=== PATIENT | female | born 1975 | race Caucasian/White ===

== ENCOUNTER 2017-05-03 16:15 | Emergency (ER) | payer MEDICAID, OTHER ==
[~2017-05-03] VITALS: Ht 170.2 cm; Wt 107.9 kg
[~2017-05-03 16:15] MED LIST: ESTR0.5T PO; PERC5TAB12 PO
[2017-05-03 16:21] VITALS: BP 146/68; PULSE 68; RESP 16; TEMP 98; O2SAT 99
--- NOTE | 2017-05-03 17:58 | RADRPT ---
EXAM DATE/TIME: 05/03/2017 17:31 [facility] COMPARISON: No previous studies available for comparison. INDICATIONS : Left shoulder pain. Recent pain from lifting/moving. MEDICAL HISTORY : None. SURGICAL HISTORY : None. ENCOUNTER: Initial ACUITY: 4 - 6 months PAIN SCORE: 7/10 LOCATION: Left shoulder FINDINGS: Two view examination of the left shoulder demonstrates no evidence of fracture or dislocation. The g lenohumeral and acromioclavicular joints are maintained. Bony mineralization is normal. CONCLUSION: Negative for an acute process. Clarke Cartagena MD FACR on May 03, 2017 at 17:55 Board Certified Radiologist. This report was verified electronically.
[2017-05-03] MEDS ORDERED: IBUP1TAB7 PO (18:35)
--- NOTE | 2017-05-03 18:43 | PD ---
HPI Chief Complaint: Pain: Acute or Chronic Time Seen by Provider: 18:20 Travel History International Travel<30 days: No Contact w/Intl Traveler<30days: No Traveled to known affect area: No History of Present Illness HPI 42-year-old right-hand dominant female presents to the ED for evaluation of 2 month history of left shoulder pain. Onset after she was lifting a sofa with her daughter. She states that she felt a "lengthening" sensation in the area. She saw her primary care provider who told her was a pinched nerve and gave her some Flexeril. She's had no improvement of her symptoms. 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 She states that the arm feels like it's "hanging" and weak. She also states that she has difficulty raising it above shoulder height. She denies numbness or tingling. She states that she treated at home with ibuprofen with no improvement of symptoms. PFSH Past Medical History Hx Anticoagulant Therapy: No Asthma: Yes Diabetes: No ?: Not Past Surgical History Cholecystectomy: Yes Hysterectomy: Yes Other Surgery: Yes ("FATTY TUMORS REMOVED" OFF OF BACK) Social History Alcohol Use: No Tobacco Use: Yes (06/11 PPD) Substance Use: No Allergies-Medications (Allergen,Severity, Reaction): Coded Allergies: No Known Allergies (Unverified Adverse Reaction, Unknown, 05/03/17) Reported Meds & Prescriptions Reported Meds & Active Scripts Active Ibuprofen 800 Mg Tab 800 Mg PO Q8H Reported Percocet 5-325 mg (Oxycodone/Acetaminophen) 5 Mg/325 Mg Tab 1 Tab PO Q4H PRN Estradiol 0.5 Mg Tab 0.5 Mg PO DAILY Review of Systems Except as stated in HPI: all other systems reviewed are Neg Physical Exam Narrative GENERAL: Well-nourished, well-developed obese white female in no acute distress. SKIN: Focused skin assessment warm/dry. HEAD: Normocephalic. EYES: No scleral icterus. No injection or drainage. NECK: Supple, trachea midline. No JVD or lymphadenopathy. CARDIOVASCULAR: Regular rate and rhythm without murmurs, gallops, or rubs. RESPIRATORY: Breath sounds equal bilaterally. No accessory muscle use. GASTROINTESTINAL: Abdomen soft, non-tender, nondistended. MUSCULOSKELETAL: No cyanosis, or edema. FOCUSED LEFT UPPER EXTREMITY EXAM: 2+ radial pulse. Strong sales program manager strength. No pain elicited with supination or pronation of the wrist. Pain elicited with external rotation of the arm. Pain elicited with resisted abduction. Pain elicited with passive overhead abduction. Drop arm test positive. Neurovascularly intact distally. BACK: Nontender without obvious deformity. No CVA tenderness. Data Data Last Documented VS Vital Signs Date Time Temp Pulse Resp B/P (MAP) Pulse Ox O2 Delivery O2 Flow Rate FiO2 05/03/17 16:21 98.0 68 16 146/68 (94) 99 Orders Orders Shoulder, Limited(2vws) (05/03/17 ) Ibuprofen (Motrin) (05/03/17 18:45) Support Splint (05/03/17 18:35) MDM Medical Decision Making Medical Screen Exam Complete: Yes Emergency Medical Condition: Yes Differential Diagnosis Musculoskeletal pain versus rotator cuff tear versus rotator cuff tendinitis versus other Narrative Course 42-year-old right-hand dominant female presents to the ED for evaluation of 2 month history of left shoulder pain. Onset after she was lifting a sofa with her daughter. She states that she felt a "lengthening" sensation in the area. She saw her primary care provider who told her was a pinched nerve and gave her some Flexeril. 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 She states that the arm feels like it's "hanging" , weak and that she has difficulty raising it above shoulder height. She drove herself to the emergency room today. Vitals reviewed. On physical exam of the left arm there is a 2+ radial pulse. Strong sales program manager strength. No pain elicited with supination or pronation of the wrist. Pain elicited with external rotation of the arm. Pain elicited with resisted abduction. Pain elicited with passive overhead abduction. Drop arm test positive. Neurovascularly intact distally. X-ray reveals no acute bony injury per radiology read. I suspect this is rotator cuff tear. I had a long conversation with the patient regarding the course of treatment for this injury. She is requesting a sling and I provided this with the caveat that she only wear it while sleeping and return to normal gentle activity as tolerated. She is provided a short course of anti-inflammatories and a referral to the on- call orthopedist. She indicated understanding of the instructions and is agreeable to the care plan. The patient is stable and discharged home. Diagnosis Primary Impression: Injury of tendon of left rotator cuff Qualified Codes: S46.002A - Unspecified injury of muscle(s) and tendon(s) of the rotator cuff of left shoulder, initial encounter Referrals: Wood Barksdale MD Patient Instructions: General Instructions, Rotator Cuff Injury (ED) Additional Instructions: Rest, ice the extremity. Apply ice no longer than 10-15 minutes per hour a few times a day. 800 mg ibuprofen up to 3 times a day as needed for pain. No heavy lifting or repetitive motion tasks for the next few weeks. Only wear the sling at night. Return to normal gentle activity as tolerated. Follow up with the primary care provider or orthopedist as discussed. Return to the ED for any urgent or emergent medical condition. Med/Other Pt SpecificInfo: Prescription(s) given Scripts Ibuprofen (Ibuprofen) 800 Mg Tab 800 MG PO Q8H, #15 TAB 0 Refills Prov: Kevin Lay MD 05/03/17 Disposition: 01 DISCHARGE HOME Condition: Stable Ana Soares May 03, 2017 18:43
[2017-05-03] MEDS ORDERED: IBUPROFEN 800 MG TAB PO ONE (18:45)
== END 2017-05-03 19:23 | disposition home or self-care (01) ==
LOC: PHEFT 16:15
DX: S46.002A Unspecified injury of muscle(s) and tendon(s) of the rotator cuff of left shoulder, initial encounter (principal); J45.909 Unspecified asthma, uncomplicated; F17.200 Nicotine dependence, unspecified, uncomplicated; X50.0XXA Overexertion from strenuous movement or load, initial encounter; Y93.9 Activity, unspecified; Y92.9 Unspecified place or not applicable; Y99.9 Unspecified external cause status
CPT/HCPCS: 73030; 99283

== ENCOUNTER 2017-06-04 01:49 | Inpatient (IN) | payer OTHER ==
[2017-06-04] VITALS (9 sets, daily range): BP systolic 132–141; BP diastolic 70–84; PULSE 63–77; RESP 18–24; TEMP 98.3–98.9; O2SAT 96–99
[~2017-06-04 01:49] MED LIST changes: +IBUP1TAB7 PO
[2017-06-04] MEDS ORDERED: LEXA10TA PO (03:00)
--- NOTE | 2017-06-04 03:27 | PD ---
HPI . Status post fall Chief Complaint: Fall Time Seen by Provider: 02:55 Travel History International Travel<30 days: No Contact w/Intl Traveler<30days: No Traveled to known affect area: No History of Present Illness HPI 42-year-old female status post trip and fall patient hit her face on the edge of a golf cart causing a rapid extension mechanism injury of her neck with immediate subsequent numbness weakness in her lower extremities and intense paresthesias in bilateral upper extremities. Patient states that the weakness and numbness in her lower extremities has abated, patient now has no lower extremity symptoms whatsoever. Patient does have persistent bilateral upper extremity paresthesias radiating from elbow down to hands. Patient denies headache, neck pain, visual changes, other focal weakness numbness or tingling, incontinence, or seizure PFSH Past Medical History Narrative Medical Past medical history reviewed Hx Anticoagulant Therapy: No Asthma: Yes Diabetes: No Patient Takes Glucophage: No Diminished Hearing: No Tetanus Vaccination: Unknown ?: Not Past Surgical History Cholecystectomy: Yes Hysterectomy: Yes (COMPLETE) Other Surgery: Yes ("FATTY TUMORS REMOVED" OFF OF BACK) Social History Alcohol Use: No Tobacco Use: Yes (06/11 PPD) Substance Use: No Allergies-Medications (Allergen,Severity, Reaction): Coded Allergies: No Known Allergies (Unverified Adverse Reaction, Unknown, 05/03/17) Reported Meds & Prescriptions Reported Meds & Active Scripts Active Reported Lexapro (Escitalopram Oxalate) 10 Mg Tab 10 Mg PO DAILY Narrative Medication Allergies medications reviewed Review of Systems Except as stated in HPI: all other systems reviewed are Neg General / Constitutional: No: Fever Eyes: No: Visual changes HENT: No: Headaches Cardiovascular: No: Chest Pain or Discomfort Respiratory: No: Shortness of Breath Gastrointestinal: No: Abdominal Pain Genitourinary: No: Dysuria Musculoskeletal: No: Pain Skin: No Rash Neurologic: Positive: Weakness, Paresthesia, Sensory Disturbance Psychiatric: No: Depression Endocrine: No: Polydipsia Hematologic/Lymphatic: No: Easy Bruising Physical Exam Narrative GENERAL: Awake alert oriented 3 no acute distress. Patient refused c-collar, will except neck bolster. Patient states that she is claustrophobic SKIN: Warm and dry. Color is normal diaphoresis and is HEAD: Atraumatic. Normocephalic. EYES: Pupils equal and round. No scleral icterus. No injection or drainage. ENT: No nasal bleeding or discharge. Mucous membranes pink and moist. NECK: Trachea midline. No JVD. Slightly tender midline. No range of motion tested secondary to patient's complaints of paresthesias above. Possible central cord syndrome mechanism. C-spine bolstered with strict C-spine precautions CARDIOVASCULAR: Regular rate and rhythm. S1-S2 no murmurs rubs or gallops RESPIRATORY: No accessory muscle use. Clear to auscultation. Breath sounds equal bilaterally. GASTROINTESTINAL: Abdomen soft, non-tender, nondistended. Hepatic and splenic margins not palpable. MUSCULOSKELETAL: Extremities without clubbing, cyanosis, or edema. No obvious deformities. NEUROLOGICAL: Awake and alert. No obvious cranial nerve deficits. Motor grossly within normal limits. Five out of 5 muscle strength in the arms and legs. Normal speech. Paresthesias noted bilateral upper extremities. Sensation intact. Perineal sensation intact. Reflexes normal all 4 PSYCHIATRIC: Appropriate mood and affect; insight and judgment normal. Data Data Last Documented VS Vital Signs Date Time Temp Pulse Resp B/P (MAP) Pulse Ox O2 Delivery O2 Flow Rate FiO2 06/04/17 02:56 98.7 71 19 98 Orders Orders Mri C Spine W/O Contrast (06/04/17 ) Dexamethasone Inj (Decadron Inj) (06/04/17 05:00) Admit Order (Ed Use Only) (06/04/17 05:02) MDM Medical Decision Making Medical Screen Exam Complete: Yes Emergency Medical Condition: Yes Medical Record Reviewed: Yes Differential Diagnosis Central cord syndrome, cervical spine injury, facial contusion Narrative Course Patient has no obvious injury of her face, there is no clinical affords. Patient's teeth are intact. Secondary to the rapid extension mechanism of injury and the paresthesias in bilateral upper extremities with resolving weakness and numbness in bilateral lower extremities, patient had MRI of the cervical spine ordered at presentation. ED wet read MRI C-spine, disc protrusion at C4-C5 level with possible protrusion into spinal cord and increased signal at same level consistent with mechanism of injury and patient's presentation of central cord syndrome. Awaiting radiology read, patient placed in Bighorn collar Diagnosis Primary Impression: Central cord syndrome Qualified Codes: S14.129A - Central cord syndrome at unspecified level of cervical spinal cord, initial encounter Additional Impression: Cervical spinal cord injury Qualified Codes: S14.109A - Unspecified injury at unspecified level of cervical spinal cord, initial encounter Admitting Information Admitting Physician Requests: Admit Morro Villasenor MD Jun 04, 2017 03:27
--- NOTE | 2017-06-04 04:24 | RADRPT ---
EXAM DATE/TIME: 06/04/2017 03:50 [facility] COMPARISON: No previous studies available for comparison. INDICATIONS : Trauma. Cord contusion. MEDICAL HISTORY : None. SURGICAL HISTORY : Hysterectomy. ENCOUNTER: Initial ACUITY: 1 day PAIN SCORE: 6/10 LOCATION: neck TECHNIQUE: Multiplanar, multisequence MRI examination of the cervical spine was performed. FINDINGS: No fracture or subluxation seen of the cervical spine. 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 C2-C3: The thecal sac has a normal configuration. There is no evidence of disc herniation or spinal canal s tenosis. The neural foramina are patent bilaterally. C3-C4: The thecal sac has a normal configuration. There is no evidence of disc herniation or spinal canal s tenosis. The neural foramina are patent bilaterally. C4-C5: Small, broad protrusion with a superimposed large left paracentral and partial foraminal extrusion wi th spinal stenosis and cord compression noted. There is associated cord edema or myelomalacia present . There is right greater than left uncovertebral osteoarthritis and moderate bilateral foraminal sten osis. C5-C6: Small, broad protrusion with a superimposed moderate-sized central extrusion causing short segment sp inal stenosis with cord compression. No cord signal abnormality at this level. There is left greater than right uncovertebral and facet osteoarthritis. [id number] left foraminal stenosis. C6-C7: Small, broad and probably nonacute left paracentral disc protrusion causing mild effacement of the an terior aspect of the thecal sac but no cord compression or cord signal abnormality. There is mild lef t foraminal stenosis. C7-T1: The thecal sac has a normal configuration. There is no evidence of disc herniation or spinal canal s tenosis. The neural foramina are patent bilaterally. CONCLUSION: 1. Large and quite possibly acute left paracentral disc fragment at C4/C5 causing cord compression an d focal cord edema/myelomalacia. There is also moderate bilateral foraminal stenosis at this level. 2. Moderate size and quite possibly acute central posterior disc fragment at C5/C6 causing cord compr ession but no cord signal abnormality. There is also mild to moderate left foraminal stenosis at this level. 3. Small and probably nonacute left paracentral protrusion at C6/C7 with mild spinal stenosis and mil d foraminal stenosis. No cord compression or cord signal abnormality at this level. 4. No fracture, subluxation or evidence of ligamentous injury of the cervical spine. John Trujillo MD on June 04, 2017 at 4:13 Board Certified Radiologist. This report was verified electronically.
[2017-06-04] MEDS ORDERED: DEXAMETHASONE SOD PHOS 20 MG/5 ML VIAL IV PUSH ONE (05:00)
[2017-06-04] MEDS ORDERED: HYDROmorphone HCL PF 2 MG/ML VIAL IV PUSH ONE (05:30)
[2017-06-04] MEDS ORDERED: HYDROmorphone HCL PF 1 MG/ML VIAL IV PUSH PRN (05:45)
[2017-06-04] MEDS ORDERED: BISACODYL 10 MG SUPP RECTAL PRN ×2 (05:45→08:45)
[2017-06-04] MEDS ORDERED: TEMAZEPAM 15 MG CAP PO PRN (05:45)
[2017-06-04] MEDS ORDERED: SENNOSIDES 8.6 MG TAB PO PRN ×2 (05:45→08:45)
[2017-06-04] MEDS ORDERED: ONDANSETRON HCL 4 MG/2 ML VIAL IV PUSH PRN ×2 (05:45→08:45)
[2017-06-04] MEDS ORDERED: CHLORHEXIDINE GLUCONATE 2 % 1 PACK (2 CLOTHS) TOP PRN (05:45)
[2017-06-04] MEDS ORDERED: SODIUM CHLORIDE 0.9% FLUSH 10 ML FLUSH IV FLUSH PRN ×2 (05:45→08:45)
[2017-06-04] MEDS ORDERED: LACTULOSE SYRUP 20 GM/30 ML CUP PO PRN ×2 (05:45→08:45)
[2017-06-04] MEDS ORDERED: LORazepam 2 MG/ML VIAL IV PUSH PRN (05:45)
[2017-06-04] MEDS ORDERED: MAGNESIUM HYDROXIDE SUSP 30 ML CUP PO PRN ×2 (05:45→08:45)
[2017-06-04] MEDS ORDERED: MISCELLANEOUS NURSING INFORMATION XX SCH (05:45)
[2017-06-04] MEDS ORDERED: RESP: ALBUTEROL 2.5 MG/IPRATROPIUM 0.5 MG NEB (PRN) INH (05:45)
[2017-06-04] MEDS: SODIUM CHLOR 0.9% 1000 ML INJ 1,000 ML IV SCH ×2 (05:56→17:39)
--- NOTE | 2017-06-04 05:58 | HHI.HP ---
HPI Service Critical Care Medicine Primary Care Physician Jourdan Castro MD Admission Diagnosis Cervical Cord Injury Diagnosis: Travel History International Travel<30 Days: No Contact w/Intl Traveler <30 Da: No Traveled to Known Affected Are: No History of Present Illness 42-year-old female status post trip and fall. The patient hit her face on the edge of a golf cart causing a rapid extension mechanism injury of her neck with immediate subsequent numbness weakness in her lower extremities and intense paresthesias in bilateral upper extremities. Patient does have persistent bilateral upper extremity paresthesias radiating from elbow down to hands. She denies headache, neck pain, visual changes, other focal weakness numbness or tingling, incontinence, or seizure. The MRI of C-spine performed in the emergency department shows large acute left paracentral disc fragment at C4/C5 causing cord compression and focal cord edema/myelomalacia. There is also moderate bilateral foraminal stenosis at this level. Review of Systems Constitutional: DENIES: Diaphoretic episodes, Fatigue, Fever, Weight gain, Weight loss, Chills, Dizziness, Change in appetite, Night Sweats Endocrine: DENIES: Abnorml menstrual pattern, Heat/cold intolerance, Polydipsia , Polyuria, Polyphagia Eyes: DENIES: Blurred vision, Diplopia, Eye inflammation, Eye pain, Vision loss , Photosensitivity, Double Vision Ears, nose, mouth, throat: DENIES: Tinnitus, Hearing loss, Vertigo, Nasal discharge, Oral lesions, Throat pain, Hoarseness, Ear Pain, Running Nose, Epistaxis, Sinus Pain, Toothache, Odynophagia Respiratory: DENIES: Apneas, Cough, Snoring, Wheezing, Hemoptysis, Sputum production, Shortness of breath Cardiovascular: DENIES: Chest pain, Palpitations, Syncope, Dyspnea on Exertion , PND, Lower Extremity Edema, Orthopnea, Claudication Gastrointestinal: DENIES: Abdominal pain, Black stools, Bloody stools, Constipation, Diarrhea, Nausea, Vomiting, Difficulty Swallowing, Anorexia Genitourinary: DENIES: Abnormal vaginal bleeding, Dysmenorrhea, Dyspareunia, Sexual dysfunction, Urinary frequency, Urinary incontinence, Urgency, Hematuria , Dysuria, Nocturia, Vaginal discharge Musculoskeletal: DENIES: Joint pain, Muscle aches, Stiffness, Joint Swelling, Back pain, Neck pain Integumentary: DENIES: Abnormal pigmentation, Pruritus, Rash, Nail changes, Breast masses, Breast skin changes, Nipple discharge Hematologic/lymphatic: DENIES: Bruising, Lymphadenopathy Immunologic/allergic: DENIES: Eczema, Urticaria Neurologic: COMPLAINS OF: Abnormal gait, Localized weakness, Paresthesias, DENIES: Headache, Seizures, Speech Problems, Tremor, Poor Balance Psychiatric: DENIES: Anxiety, Confusion, Mood changes, Depression, Hallucinations, Agitation, Suicidal Ideation, Homicidal Ideation, Delusions Past Family Social History Allergies: Coded Allergies: No Known Allergies (Unverified Allergy, Unknown, 06/04/17) Past Medical History Anxiety Past Surgical History Cholecystectomy: Yes Hysterectomy: Yes (COMPLETE) Other Surgery: Yes ("FATTY TUMORS REMOVED" OFF OF BACK) Reported Medications Reported Meds & Active Scripts Active Reported Lexapro (Escitalopram Oxalate) 10 Mg Tab 10 Mg PO DAILY Active Ordered Medications Current Medications Dexamethasone Sodium Phosphate (Decadron Inj) 10 mg ONCE ONCE IV PUSH Last administered on 06/04/17at 05:06; Start 06/04/17 at 05:00; Stop 06/04/17 at 05:01 ; Status DC Hydromorphone HCl (Dilaudid Pf Inj) 1 mg ONCE ONCE IV PUSH ; Start 06/04/17 at 05:30; Stop 06/04/17 at 05:31; Status DC Family History No family history significant of a stroke Social History Alcohol Use: No Tobacco Use: Yes (3/4 PPD) Substance Use: No Physical Exam Vital Signs Vital Signs Date Time Temp Pulse Resp B/P (MAP) Pulse Ox O2 Delivery O2 Flow Rate FiO2 06/04/17 05:12 70 18 135/84 (101) 99 Room Air 06/04/17 02:56 98.7 71 19 98 Physical Exam GENERAL: Awake alert oriented 3 no acute distress. SKIN: Warm and dry. Color is normal. HEAD: Atraumatic. Normocephalic. EYES: Pupils equal and round. No scleral icterus. No injection or drainage. ENT: No nasal bleeding or discharge. Mucous membranes pink and moist. NECK: Trachea midline. No JVD. Slightly tender midline. No range of motion tested secondary to patient's complaints of paresthesias above. Possible central cord syndrome mechanism. C-spine bolstered with strict C-spine precautions CARDIOVASCULAR: Regular rate and rhythm. S1-S2 no murmurs rubs or gallops RESPIRATORY: No accessory muscle use. Clear to auscultation. Breath sounds equal bilaterally. GASTROINTESTINAL: Abdomen soft, non-tender, nondistended. Hepatic and splenic margins not palpable. MUSCULOSKELETAL: Extremities without clubbing, cyanosis, or edema. No obvious deformities. NEUROLOGICAL: Awake and alert. No obvious cranial nerve deficits. Motor grossly within normal limits. Five out of 5 muscle strength in the arms and legs. Normal speech. Paresthesias noted bilateral upper extremities. Sensation intact. Perineal sensation intact. Reflexes normal all 4 Imaging 1. Large and quite possibly acute left paracentral disc fragment at C4/C5 causing cord compression and focal cord edema/myelomalacia. There is also moderate bilateral foraminal stenosis at this level. 2. Moderate size and quite possibly acute central posterior disc fragment at C5/ C6 causing cord compression but no cord signal abnormality. There is also mild to moderate left foraminal stenosis at this level. 3. Small and probably nonacute left paracentral protrusion at C6/C7 with mild spinal stenosis and mild foraminal stenosis. No cord compression or cord signal abnormality at this level. 4. No fracture, subluxation or evidence of ligamentous injury of the cervical spine. Septic Shock Reassessment Septic shock perfusion: reassessment completed Caprini VTE Risk Assessment Caprini VTE Risk Assessment: Mod/High Risk (score >= 2) Caprini Risk Assessment Model Point Value = 1 Point Value = 2 Point Value = 3 Point Value = 5 Age 41-60 Minor surgery BMI > 25 kg/m2 Swollen legs Varicose veins or History of unexplained or recurrent spontaneous Oral contraceptives or hormone replacement Sepsis (< 1 month) Serious lung disease, including pneumonia (< 1 month) Abnormal pulmonary function Acute myocardial infarction Congestive heart failure (< 1 month) History of inflammatory bowel disease Medical patient at bed rest Age 61-74 Arthroscopic surgery Major open surgery (> 45 min) Laparoscopic surgery (> 45 min) Malignancy Confined to bed (> 72 hours) Immobilizing plaster cast Central venous access Age >= 75 History of VTE Family history of VTE Factor V Leiden Prothrombin [id number] Lupus anticoagulant Anticardiolipin antibodies Elevated serum homocysteine Heparin-induced thrombocytopenia Other congenital or acquired thrombophilia Stroke (< 1 month) Elective arthroplasty Hip, pelvis, or leg fracture Acute spinal cord injury (< 1 month) Prophylaxis Regimen Total Risk Factor Score Risk Level Prophylaxis Regimen 0-1 Low Early ambulation 2 Moderate Order ONE of the following: *Sequential Compression Device (SCD) *Heparin 5000 units SQ BID 3-4 Higher Order ONE of the following medications: *Heparin 5000 units SQ TID *Enoxaparin/Lovenox 40 mg SQ daily (WT < 150 kg, CrCl > 30 mL/min) *Enoxaparin/Lovenox 30 mg SQ daily (WT < 150 kg, CrCl > 10-29 mL/min) *Enoxaparin/Lovenox 30 mg SQ BID (WT < 150 kg, CrCl > 30 mL/min) AND/OR *Sequential Compression Device (SCD) 5 or more Highest Order ONE of the following medications: *Heparin 5000 units SQ TID (Preferred with Epidurals) *Enoxaparin/Lovenox 40 mg SQ daily (WT < 150 kg, CrCl > 30 mL/min) *Enoxaparin/Lovenox 30 mg SQ daily (WT < 150 kg, CrCl > 10-29 mL/min) *Enoxaparin/Lovenox 30 mg SQ BID (WT < 150 kg, CrCl > 30 mL/min) AND *Sequential Compression Device (SCD) Assessment and Plan Assessment and Plan Acute left paracentral disc fragment at C4/C5 - With cord compression and focal cord edema/myelomalacia - Stat neurosurgical consultation - Received IV steroids per neurosurgical request - MAP goal > 85-90 - currently at goal Anxiety - Continue Lexapro History of asthma - DuoNeb's when necessary DVT GI prophylaxis - Teds SCDs - Lovenox - Pepcid Critical Care: The total critical care time was 35 minutes. Time to perform other separately billable procedures was not included in the critical care time. Angel Brooks MD Jun 04, 2017 5:58 am
[2017-06-04] MEDS: ACETAMINOPHEN 325 MG TAB PO PRN ×2 (06:02→11:50)
[2017-06-04] MEDS: ACETAMINOPHEN 1000 MG/100 ML 100 ML IV SCH ×3 (06:45→18:45)
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
--- NOTE | 2017-06-04 08:43 | RADRPT ---
EXAM DATE/TIME: 06/04/2017 08:20 [facility] COMPARISON: No previous studies available for comparison. INDICATIONS : Fell forward into golf cart. No current chest pain, pre-operative for cervical surgery. MEDICAL HISTORY : None. SURGICAL HISTORY : None. ENCOUNTER: Initial ACUITY: 1 day PAIN SCORE: 0/10 LOCATION: Bilateral chest FINDINGS: A single view of the chest demonstrates the lungs to be symmetrically aerated without evidence of mas s, infiltrate or effusion. The cardiomediastinal contours are unremarkable. Osseous structures are intact. CONCLUSION: No acute disease. John Lomeli MD on June 04, 2017 at 8:42 Board Certified Radiologist. This report was verified electronically.
[2017-06-04] MEDS ORDERED: RESP: ALBUTEROL 2.5 MG/3 ML NEB (PRN) NEB (08:45)
[2017-06-04] MEDS ORDERED: PROMETHAZINE INJ 25 MG/ML VIAL IM PRN (08:45)
[2017-06-04] MEDS ORDERED: MAGNESIUM SULFATE INJ 2 GM in SODIUM CHLORIDE 0.9% INJ 100 ML IV PRN (08:45)
[2017-06-04] MEDS ORDERED: ZOLPIDEM TARTRATE 5 MG TAB PO PRN (08:45)
[2017-06-04] MEDS ORDERED: POTASSIUM CHLOR 20 MEQ PREMIX 100 ML IV PRN (08:45)
[2017-06-04] MEDS ORDERED: ALUMINUM/MAGNESIUM/SIMETH 30 ML CUP PO PRN (08:45)
[2017-06-04] MEDS ORDERED: CALCIUM GLUCONATE INJ 1 GM in SODIUM CHLORIDE 0.9% INJ 100 ML IV PRN (08:45)
[2017-06-04] MEDS ORDERED: LABETALOL HCL 100 MG/20 ML VIAL IV PUSH PRN (08:45)
[2017-06-04] MEDS ORDERED: CYCLOBENZAPRINE HCL 10 MG TAB PO PRN (08:45)
[2017-06-04] MEDS ORDERED: cloNIDine HCL 0.1 MG TAB PO PRN (08:45)
[2017-06-04 08:56] LABS: AUTOMATED NEUTROPHIL # 3.6 TH/MM3 (1.8-7.7); BASOPHIL % 0.8 % (0.0-2.0); EOSINOPHIL # 0.1 TH/MM3 (0-0.4); EOSINOPHIL % 1.7 % (0.0-4.0); HEMOGLOBIN 13.8 GM/DL (11.6-15.3); LYMPHOCYTE # 2.3 TH/MM3 (1.0-4.8); MEAN CELL VOLUME 86.2 FL (80.0-100.0); MEAN CORPUSCULAR HEMOGLOBIN 29.7 PG (27.0-34.0); MEAN CORPUSCULAR HGB CONC 34.4 % (32.0-36.0); MEAN PLATELET VOLUME 7.3 FL (7.0-11.0); MONO % 7.4 % (0.0-8.0); MONOCYTE # 0.5 TH/MM3 (0-0.9); NEUT % 55.1 % (16.0-70.0); PLATELET COUNT 296 TH/MM3 (150-450); RED BLOOD COUNT 4.64 MIL/MM3 (4.00-5.30); RED CELL DISTRIBUTION WIDTH 13.9 % (11.6-17.2); WHITE BLOOD COUNT 6.5 TH/MM3 (4.0-11.0)
[2017-06-04] MEDS ORDERED: SODIUM CHLORIDE 0.9% FLUSH 10 ML FLUSH IV FLUSH SCH (09:00)
[2017-06-04] MEDS ORDERED: DOCUSATE SODIUM 50 MG/SENNA 8.6 MG TAB PO SCH (09:00)
[2017-06-04] MEDS ORDERED: PANTOPRAZOLE SOD 40 MG DELAYED RELEASE TAB PO SCH (09:00)
[2017-06-04] MEDS ORDERED: ENOXAPARIN SODIUM 40 MG/0.4 ML SYRINGE SQ SCH (09:00)
[2017-06-04] MEDS ORDERED: ESCITALOPRAM OXALATE 10 MG TAB PO SCH (09:00)
[2017-06-04 09:10] LABS: INTERNATIONAL NORMALIZED RATIO 0.9 RATIO; PROTHROMBIN TIME - PATIENT 9.4 SEC (9.8-11.6)
[2017-06-04 09:48] LABS: BICARBONATE 24.2 MEQ/L (21.0-32.0); CALCIUM 8.8 MG/DL (8.5-10.1); CREATININE 0.8 MG/DL (0.50-1.00)
[2017-06-04] MEDS: DOCUSATE SODIUM 50 MG/SENNA 8.6 MG TAB PO SCH ×2 (10:29→21:00)
[2017-06-04] MEDS: FAMOTIDINE 20 MG/2 ML VIAL IV PUSH SCH ×2 (10:30→21:00)
[2017-06-04] MEDS: SODIUM CHLORIDE 0.9% FLUSH 10 ML FLUSH IV FLUSH SCH ×2 (10:30→21:00)
[2017-06-04] MEDS: ESCITALOPRAM OXALATE 10 MG TAB PO SCH (11:00)
--- NOTE | 2017-06-04 11:29 | EKG ---
Date Performed: 06/04/2017 Time Performed: 08:25:41 PTAGE: 42 years EKG: Sinus rhythm NORMAL ECG NO PREVIOUS TRACING DOCTOR: Saroj Villalba Interpretating Date/Time 06/04/2017 11:27:48
[2017-06-04] MEDS: DEXAMETHASONE SOD PHOS 4 MG/ML VIAL IV PUSH SCH ×3 (11:50→22:53)
[2017-06-04] MEDS: ACETAMINOPHEN/HYDROcodone 325 MG/10 MG TAB PO PRN ×2 (15:20→18:03)
[2017-06-04] MEDS: HYDROmorphone HCL PF 2 MG/ML VIAL IV PRN ×2 (18:03→22:53)
[2017-06-05] MEDS: ACETAMINOPHEN 1000 MG/100 ML 100 ML IV SCH ×4 (00:45→18:45)
[2017-06-05] MEDS: CHLORHEXIDINE GLUCONATE 2 % 1 PACK (2 CLOTHS) TOP SCH (04:00)
[2017-06-05] MEDS: SODIUM CHLOR 0.9% 1000 ML INJ 1,000 ML IV SCH ×2 (05:34→12:48)
[2017-06-05 05:50] LABS: AUTOMATED NEUTROPHIL # 7.6 TH/MM3 (1.8-7.7); BASOPHIL % 0.1 % (0.0-2.0); HEMATOCRIT 37.9 % (35.0-46.0); HEMOGLOBIN 12.9 GM/DL (11.6-15.3); LYMPH % 10.3 % (9.0-44.0); LYMPHOCYTE # 0.9 TH/MM3 (1.0-4.8); MEAN CELL VOLUME 84.6 FL (80.0-100.0); MEAN CORPUSCULAR HEMOGLOBIN 28.9 PG (27.0-34.0); MEAN CORPUSCULAR HGB CONC 34.1 % (32.0-36.0); MEAN PLATELET VOLUME 6.9 FL (7.0-11.0); MONO % 4.6 % (0.0-8.0); MONOCYTE # 0.4 TH/MM3 (0-0.9); PLATELET COUNT 285 TH/MM3 (150-450); RED BLOOD COUNT 4.48 MIL/MM3 (4.00-5.30); RED CELL DISTRIBUTION WIDTH 13.9 % (11.6-17.2); WHITE BLOOD COUNT 8.9 TH/MM3 (4.0-11.0)
[2017-06-05 06:15] LABS: ALBUMIN 3.5 GM/DL (3.4-5.0); AST (GOT) 6 U/L (15-37); BICARBONATE 24.9 MEQ/L (21.0-32.0); BLOOD UREA NITROGEN 13 MG/DL (7-18); CALCIUM 9.1 MG/DL (8.5-10.1); CHLORIDE 107 MEQ/L (98-107); CREATININE 0.76 MG/DL (0.50-1.00); GLOMERULAR FILTRATION RATE 83 ML/MIN (>89); GLUCOSE,RANDOM 148 MG/DL (74-106); MAGNESIUM 2.1 MG/DL (1.5-2.5); SODIUM (NA) 140 MEQ/L (136-145)
[2017-06-05 06:16] LABS: ALT (GPT) 38 U/L (10-53)
[2017-06-05] MEDS: DEXAMETHASONE SOD PHOS 4 MG/ML VIAL IV PUSH SCH ×3 (06:16→18:22)
[2017-06-05] MEDS: ACETAMINOPHEN/HYDROcodone 325 MG/10 MG TAB PO PRN ×2 (06:16→16:40)
[2017-06-05 06:19] LABS: ALKALINE PHOSPHATASE 90 U/L (45-117); PHOSPHORUS 2.1 MG/DL (2.5-4.9); TOTAL BILIRUBIN ADULT 0.4 MG/DL (0.2-1.0); TOTAL PROTEIN 6.7 GM/DL (6.4-8.2)
[2017-06-05] MEDS ORDERED: PROPOFOL 500 MG/50 ML INJ 50 ML ONE ×3 (06:45→10:24)
[2017-06-05] MEDS ORDERED: VANCOMYCIN HCL 1000 MG VIAL ONE ×2 (06:56→08:51)
[2017-06-05] MEDS ORDERED: BUPIVACAINE/EPINEPHRINE 0.5% PF 30 ML VIAL ONE (06:56)
[2017-06-05] MEDS ORDERED: GELFOAM SIZE 100 ONE ×2 (06:56→11:15)
[2017-06-05] MEDS ORDERED: THROMBIN (TOPICAL) 5,000 UNIT VIAL ONE ×2 (06:56→11:15)
[2017-06-05] MEDS ORDERED: SUFentanil INJ 250 MCG/5 ML AMP ONE (07:21)
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
[2017-06-05 08:00] VITALS: PULSE 61
[2017-06-05] MEDS ORDERED: ARTIFICIAL TEARS OPTH OINT 3.5 APPLIC/3.5 GM TUBO ONE (08:47)
[2017-06-05] MEDS ORDERED: SODIUM CHLOR 0.9% 250 ML INJ 250 ML ONE (08:51)
[2017-06-05] MEDS: ESCITALOPRAM OXALATE 10 MG TAB PO SCH (09:00)
[2017-06-05] MEDS: SODIUM CHLORIDE 0.9% FLUSH 10 ML FLUSH IV FLUSH SCH ×2 (09:00→20:35)
[2017-06-05] MEDS: DOCUSATE SODIUM 50 MG/SENNA 8.6 MG TAB PO SCH ×2 (09:00→20:35)
[2017-06-05] MEDS: FAMOTIDINE 20 MG/2 ML VIAL IV PUSH SCH ×2 (09:00→20:35)
[2017-06-05] MEDS ORDERED: ROCURONIUM INJ 50 MG/5 ML SYRINGE IV PUSH ONE (12:00)
[2017-06-05] MEDS ORDERED: LIDOCAINE HCL 1% PF 5 ML SYRINGE OTHER ONE (12:00)
[2017-06-05] MEDS ORDERED: ONDANSETRON HCL 4 MG/2 ML VIAL IV ONE (12:00)
[2017-06-05] MEDS ORDERED: LACTATED RINGER'S 1000 ML INJ 1,000 ML IV ONE (12:00)
[2017-06-05] MEDS ORDERED: PROPOFOL 200 MG/20 ML AMP IV ONE (12:00)
[2017-06-05] MEDS ORDERED: DEXAMETHASONE SOD PHOS 4 MG/ML VIAL IV ONE (12:00)
--- NOTE | 2017-06-05 12:20 | PD.OP ---
cc: oJurdan Castro MD Operative Report Date of Surgery: Jun 05, 2017 Preoperative Diagnosis: Central spinal cord injury with quadriparesis; C4-5 and C5-6 disc osteophyte complex with associated spinal cord compression Postoperative Diagnosis: Same Procedure: Anterior cervical C4-5 and C5-6 microdiscectomy with interbody fusion; anterior C4-6 cervical plate placement; C4-5 and C5-6 interbody cage placement; microsurgical technique Anesthesia: Gen. endotracheal by Leticia lyman Surgeon: Amol Slade M.D. Miter Saw Operator(s): Ailin Wilcox Operation and Findings: Following administration of general endotracheal anesthesia with the neck maintained in neutral position in a [place] collar, the patient received a gram of vancomycin and Decadron 10 mg intravenously. Sequential compression devices were placed in supine position on a Socrates table and all pressure points adequately padded. The head secured in a donut and anterior cervical region then shaved and prepped with Chloraprep and sterilely draped with Ioban along with the usual sterile draping. A transverse skin incision on the left side of the neck was then made after infiltrating the skin with 0.5% Marcaine with epinephrine solution extending down through the platysma. At the anterior border of the sternocleidomastoid further dissection was undertaken developing a plane between the carotid sheath laterally and the trachea esophagus medially. The prevertebral fascia was exposed and dissected out. The medial attachments of the longus colli muscles were detached and a self-retaining retractor used for exposure. The C4-5 disc space was localized with a marking the disc space and using lateral fluoroscopy. Placedo distraction screws 14 mm length were placed one in the C4 and one in the C6 body interbody distraction and exposure. There was disc degeneration and anterior osteophytes noted at the C4-5 and C5-6 levels and the osteophytes were resected with a Leksell and annulus incised with a 15 blade and further dissection undertaken using microtechnique with microscope magnification. Diskectomy was undertaken with pituitaries and the endplates were also decorticated with curettes and drill bit. And more posteriorly there was disk osteophyte complex with acute on chronic disc herniations at both levels central and eccentric to the left side compressing the thecal sac along with a significant uncovertebral joint hypertrophy with foraminal stenosis which was decompressed along with removal of the posterior longitudinal ligaments at both levels. The foramen was decompressed bilaterally using a Kerrison's and palpation with a nerve hook, the exiting nerve roots were felt to be free. The area was then copiously irrigated. I then placed a Peek cage packed with local autograft bone at the C4 -5 and C5-6 interspaces under fluoroscopy guidance. Placedo distraction pins were removed and the holes plugged with Gelfoam for hemostasis. In order to facilitate the fusion and provide stabilization, a Precision spine cervical plate was then placed with two 14 mm variable angle screws in the C4 and C5 body and two 14 mm fixed angle screws in the C6 body. The plate screw locking mechanism was then engaged. AP and lateral fluoroscopy confirmed good placement of the construct and the retractor was then removed. Muscular bleeding points were cauterized with bipolar cautery and Gelfoam was then also used for hemostasis which was removed. The platysma was then approximated using 3-0 Vicryl interrupted stitches and 3-0 Vicryl subcuticular stitch also placed in an interrupted fashion, and final skin closure was with Mastisol and Steri- Strips. Sterile dressing was then applied. The neck immobilized in a [place] J collar. The patient was then extubated and taken to the recovery room. There are no intraoperative complications and all sponge and needle counts were correct at the end of procedure. Estimated blood loss was about 50 cc. The patient did undergo intraoperative neurologic monitoring which remained stable throughout the surgery. Amol Slade MD Jun 05, 2017 12:20
[2017-06-05] MEDS ORDERED: DO NOT ADM ANY ANTICOAGULANT DRUGS PRN (12:26)
--- NOTE | 2017-06-05 13:00 | RADRPT ---
EXAM DATE/TIME: 06/05/2017 09:07 [facility] COMPARISON: No previous studies available for comparison. INDICATIONS : Post-op C4-C5, C5-C6 anterior cervical fusion. MEDICAL HISTORY : None. SURGICAL HISTORY : None. ENCOUNTER: Subsequent ACUITY: 2 days PAIN SCORE: Non-responsive. LOCATION: neck FINDINGS: Status post anterior cervical fusion C4-C6. Anatomic alignment. CONCLUSION: And alignment. Clarke Cartagena MD FACR on June 05, 2017 at 12:59 Board Certified Radiologist. This report was verified electronically.
--- NOTE | 2017-06-05 13:01 | RADRPT ---
EXAM DATE/TIME: 06/05/2017 09:07 [facility] COMPARISON: No previous studies available for comparison. INDICATIONS : C4-C5, C5-C6 anterior cervical fusion. Level localization. MEDICAL HISTORY : None. SURGICAL HISTORY : None. ENCOUNTER: ACUITY: 2 days PAIN SCORE: Non-responsive. LOCATION: neck FINDINGS: Metallic probe at C4-C5.. CONCLUSION: Probe C4-C5. Clarke Cartagena MD FACR on June 05, 2017 at 13:00 Board Certified Radiologist. This report was verified electronically.
[2017-06-05] MEDS ORDERED: MIDAZOLAM HCL 2 MG/2 ML VIAL ONE (13:28)
[2017-06-05] MEDS ORDERED: *morphine SULFATE 4 MG/ML PERIprocedure ONLY ONE (13:43)
--- NOTE | 2017-06-05 14:31 | OTSOAPIP ---
TIME SESSION COMPLETED: TREATMENT TIME: MINS. CHART REVIEWED. PATIENT WITH A DIAGNOSIS OF CENTRAL SPINAL CORD INJURY WITH QUADRIPARESIS; C4-5 AND C5-6 DISC OSTEOPHYTE COMPLEX WITH ASSOCIATED SPINAL CORD COMPRESSION PATIENT NOT AVAILABLE DUE TO HAVING SURGERY FOR ANTERIOR CERVICAL C4-5 AND C5-6 MICRODISCECTOMY WITH INTERBODY FUSION; ANTERIOR C4-6 CERVICAL PLATE PLACEMENT; C4-5 AND C5-6 INTERBODY CAGE PLACEMENT; MICROSURGICAL TECHNIQUE PLAN WILL SEE PATIENT NEXT TREATMENT TODAY Therapist: ANTONIO MONTAAN/Pravin Signature on file
[2017-06-05] MEDS: MENTHOL LOZENGE BUCCAL PRN ×2 (16:40→18:21)
[2017-06-05 16:57] VITALS: PULSE 62
[2017-06-05] MEDS: HYDROmorphone HCL PF 2 MG/ML VIAL IV PRN ×2 (20:35→21:45)
[2017-06-05 23:00] VITALS: PULSE 52
[2017-06-06] MEDS: ACETAMINOPHEN 1000 MG/100 ML 100 ML IV SCH (00:44)
[2017-06-06] MEDS: ACETAMINOPHEN/HYDROcodone 325 MG/10 MG TAB PO PRN ×5 (03:32→20:12)
[2017-06-06] MEDS: CHLORHEXIDINE GLUCONATE 2 % 1 PACK (2 CLOTHS) TOP SCH (04:00)
[2017-06-06 04:55] LABS: BICARBONATE 27.9 MEQ/L (21.0-32.0); CALCIUM 8.6 MG/DL (8.5-10.1); CREATININE 0.8 MG/DL (0.50-1.00)
[2017-06-06] MEDS: SODIUM CHLOR 0.9% 1000 ML INJ 1,000 ML IV SCH ×2 (05:24→17:19)
[2017-06-06] MEDS: DEXAMETHASONE SOD PHOS 4 MG/ML VIAL IV PUSH SCH ×2 (06:34)
[2017-06-06 07:30] VITALS: PULSE 53
--- NOTE | 2017-06-06 08:25 | HHI.CCPN ---
Subjective Remarks/Hospital Course 42-year-old female status post trip and fall. The patient hit her face on the edge of a golf cart causing a rapid extension mechanism injury of her neck with immediate subsequent numbness weakness in her lower extremities and intense paresthesias in bilateral upper extremities. Patient does have persistent bilateral upper extremity paresthesias radiating from elbow down to hands. She denies headache, neck pain, visual changes, other focal weakness numbness or tingling, incontinence, or seizure. The MRI of C-spine performed in the emergency department shows large acute left paracentral disc fragment at C4/C5 causing cord compression and focal cord edema/myelomalacia. There is also moderate bilateral foraminal stenosis at this level. 06/05: Major complaint today is burning in the fingers, particularly right hand. MRI is worrisome and decompression is advised. 06/06: Patient underwent anterior approach cervical decompression and reconstruction. Breathing comfortably, protects airway. No stridor or obstruction. Objective Vital Signs Date Time Temp Pulse Resp B/P (MAP) Pulse Ox O2 Delivery O2 Flow Rate FiO2 06/05/17 23:00 52 06/05/17 19:00 Room Air 96 06/05/17 13:45 97.9 20 139/82 (101) 94 3 Intake and Output 06/06/17 06/06/17 06/07/17 08:00 16:00 00:00 Intake Total 1256 ml Output Total 1350 ml Balance -94 ml Result Diagram: 06/05/17 0525 06/06/17 0323 Imaging 1. Large and quite possibly acute left paracentral disc fragment at C4/C5 causing cord compression and focal cord edema/myelomalacia. There is also moderate bilateral foraminal stenosis at this level. 2. Moderate size and quite possibly acute central posterior disc fragment at C5/ C6 causing cord compression but no cord signal abnormality. There is also mild to moderate left foraminal stenosis at this level. 3. Small and probably nonacute left paracentral protrusion at C6/C7 with mild spinal stenosis and mild foraminal stenosis. No cord compression or cord signal abnormality at this level. 4. No fracture, subluxation or evidence of ligamentous injury of the cervical spine. Objective Remarks GENERAL: Awake, alert, oriented 3 no acute distress. SKIN: Warm and dry. Color is normal. HEAD: Atraumatic. Normocephalic. EYES: Pupils equal and round. No scleral icterus. No injection or drainage. ENT: No nasal bleeding or discharge. Mucous membranes pink and moist. NECK: Trachea midline. Cervical collar in place. CARDIOVASCULAR: Regular rate and rhythm. S1-S2 no murmurs rubs or gallops. NO JVD. RESPIRATORY: No accessory muscle use. Clear to auscultation. Breath sounds equal bilaterally. GASTROINTESTINAL: Abdomen soft, non-tender, nondistended. BS active. MUSCULOSKELETAL: Extremities without clubbing, cyanosis, or edema Well perfused. NEUROLOGICAL: Awake and alert. Normal speech. A/P Assessment and Plan Acute left paracentral disc fragment at C4/C5 - With cord compression and focal cord edema/myelomalacia - Stat neurosurgical consultation - Received IV steroids per neurosurgical request - MAP goal > 70 - currently at goal - Anterior cervical ORIF 06/05. Anxiety - Continue Lexapro History of asthma - DuoNeb's when necessary DVT GI prophylaxis - Teds SCDs - No chemical prophylaxis. - Pepcid Overall impression: Anterior decompression of the cervical cord performed, recovering nicely. Airway widely patent. Travon Mora MD Jun 06, 2017 08:24
[2017-06-06] MEDS: SODIUM CHLORIDE 0.9% FLUSH 10 ML FLUSH IV FLUSH SCH ×2 (08:46→20:13)
[2017-06-06] MEDS: DOCUSATE SODIUM 50 MG/SENNA 8.6 MG TAB PO SCH ×2 (08:52→20:12)
[2017-06-06] MEDS: FAMOTIDINE 20 MG/2 ML VIAL IV PUSH SCH ×2 (08:52→20:11)
[2017-06-06] MEDS: ESCITALOPRAM OXALATE 10 MG TAB PO SCH (08:52)
[2017-06-06] MEDS: GABAPENTIN 300 MG CAP PO SCH ×2 (10:01→20:12)
--- NOTE | 2017-06-06 10:40 | HHI.NSPN ---
(Hola Moraes) History Chief Complaint: Spinal cord injury. Weakness in UEs pain in hands. (Hola Moraes) Interval History 42-year-old female presented to the emergency room after spinal cord injury from a fall. She relates that she tripped and fell on golf cart forward and struck her face and hyperextended her neck and subsequently she was on the floor unable to move her arms and legs with loss of sensation in her whole body. The paramedics were summoned and she was placed on a backboard with spinal precautions and brought to [facility] emergency room. She started noticing some improvement of his strength lower extremities more than the upper extremity complains of severe dysesthesias in the hands and forearm and grimaces with pain even when attempting to touch her hands. She is unable to make a fist. Workup included MRI scan cervical spine which reveals acute on chronic the disc herniation with the protrusions at C4-5 and C5-6 levels with moderate to spinal stenosis and intrinsic T2 weighted cord edema/injury with mild stenosis at C6-7 level. She relates a remote history of whiplash neck injury with chronic neck and back pain. She is also diagnosed with a left rotator cuff injury about a month ago and was seen by orthopedic surgery and referred to physical therapy. 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 She relates urinary urgency but no incontinence since the injury early this morning. She also relates some dyspnea but she says this is chronic from her smoking and COPD. She'll occasionally take inhalers. Recently she is also a some abdominal pain from reflux and has been taking Prilosec as needed. 06/06/17: Pt awake and alert. She is sitting up in a chair. Complains of burning pain in hands but this was also in her arms and is receding and remains in her hands. She complains they are very sensitive and request not to be touched. She has weakness in UEs more than LEs. (Hola Moraes) Review of Systems General: Negative for: fever, chills, insomnia Respiratory: Negative for: shortness of breath, cough, sputum Cardiovascular: Negative for: chest pain Gastrointestinal: Negative for: nausea, vomitting, diarrhea, constipation ( Hola Moraes) Exam Results Vital Signs Date Time Temp Pulse Resp B/P (MAP) Pulse Ox O2 Delivery O2 Flow Rate FiO2 06/05/17 23:00 52 06/05/17 19:00 Room Air 96 06/05/17 13:45 97.9 20 139/82 (101) 94 3 Intake and Output 06/06/17 06/06/17 06/07/17 08:00 16:00 00:00 Intake Total 1256 ml Output Total 1350 ml Balance -94 ml (Hola Moraes) Physical Examination General: Pt awake and alert. Sitting up in chair in NAD. Eyes: Pupils equal. Sclera anicteric. Resp: CTA bilaterally. Heart: NSR no murmurs. Abd: Soft positive bs. Skin: No cyanosis or erythema. Incision healing well. New bandage placed. Muscle: Moves all 4 extremities. Deltoid, biceps, triceps 4-/5, She is able to make a fist with 3-5 fingers bilaterally, she doesn't want to flex 1-2 fingers secondary to her pain and weakness. Strength in LEs 4/5 [place] cervical collar intact. Neuro: Pt awake and alert. Sitting up in chair. Follows commands well. Speech clear and appropriate. Pupils equal. Paresthesias and dysesthesias in UEs with decreased sensation to light touch but pt feels like some improvement. (Hola Moraes) Lab, Micro, Other Results Last Impressions Cervical Spine X-Ray 06/05/17 0000 Signed Impressions: Service Date/Time: Monday, June 05, 2017 09:07 - CONCLUSION: Probe C4-C5. Clarke Cartagena MD FACR Chest X-Ray 06/04/17 0000 Signed Impressions: Service Date/Time: Sunday, June 04, 2017 08:20 - CONCLUSION: No acute disease. John Lomeli MD Cervical Spine MRI 06/04/17 0000 Signed Impressions: Service Date/Time: Sunday, June 04, 2017 03:50 - CONCLUSION: 1. Large and quite possibly acute left paracentral disc fragment at C4/C5 causing cord compression and focal cord edema/myelomalacia. There is also moderate bilateral foraminal stenosis at this level. 2. Moderate size and quite possibly acute central posterior disc fragment at C5/C6 causing cord compression but no cord signal abnormality. There is also mild to moderate left foraminal stenosis at this level. 3. Small and probably nonacute left paracentral protrusion at C6/ C7 with mild spinal stenosis and mild foraminal stenosis. No cord compression or cord signal abnormality at this level. 4. No fracture, subluxation or evidence of ligamentous injury of the cervical spine. John Trujillo MD Laboratory Tests Test 06/06/17 03:23 Blood Urea Nitrogen 16 MG/DL Creatinine 0.80 MG/DL Random Glucose 138 MG/DL Calcium Level 8.6 MG/DL Sodium Level 139 MEQ/L Potassium Level 4.1 MEQ/L Chloride Level 104 MEQ/L Carbon Dioxide Level 27.9 MEQ/L Anion Gap 7 MEQ/L Estimat Glomerular Filtration Rate 78 ML/MIN 06/06/17 06/06/17 06/07/17 15:00 23:00 07:00 Intake Total 100 ml Balance 100 ml IV Total 100 ml (Hola Moraes) Medical Decision Making Impression and Plan A: 42 y/o FM s/p anterior cervical C4-5 and C5-6 microdiscectomy with interbody fusion; anterior C4-6 cervical plate placement; C4-5 and C5-6 interbody cage placement on 06/05/17. P: Continue with rehab efforts. Transfer to 6N Neurontin 300mg bid. discussed side effects with pt will monitor. Continue with cervical collar Pt will need inpatient rehab given her SCI and weakness. (Hola Moraes) Attending Statement The exam, history, and the medical decision-making described in the above note were completed with the assistance of the mid-level provider. I reviewed and agree with the findings presented. I attest that I had a [id number] encounter with the patient on the same day, and personally performed and documented my assessment and findings in the medical record. (Amol Slade MD) Hola Moraes Jun 06, 2017 10:40 Amol Slade MD Jun 06, 2017 18:00
[2017-06-06 16:30] VITALS: PULSE 53
[2017-06-06] MEDS: MENTHOL LOZENGE BUCCAL PRN (18:25)
[2017-06-06 20:00] VITALS: BP 132/78; PULSE 53; RESP 20; TEMP 98.5; O2SAT 96
[2017-06-06 23:00] VITALS: PULSE 52
[2017-06-07] VITALS (7 sets, daily range): BP systolic 126–150; BP diastolic 67–81; PULSE 31–58; RESP 12–24; TEMP 97.7–98.3; O2SAT 96–99
[2017-06-07] MEDS: ACETAMINOPHEN/HYDROcodone 325 MG/10 MG TAB PO PRN ×3 (01:42→17:30)
[2017-06-07] MEDS: SODIUM CHLOR 0.9% 1000 ML INJ 1,000 ML IV SCH (03:17)
[2017-06-07] MEDS: CHLORHEXIDINE GLUCONATE 2 % 1 PACK (2 CLOTHS) TOP SCH (04:00)
--- NOTE | 2017-06-07 07:32 | HHI.CCPN ---
Subjective Remarks/Hospital Course 42-year-old female status post trip and fall. The patient hit her face on the edge of a golf cart causing a rapid extension mechanism injury of her neck with immediate subsequent numbness weakness in her lower extremities and intense paresthesias in bilateral upper extremities. Patient does have persistent bilateral upper extremity paresthesias radiating from elbow down to hands. She denies headache, neck pain, visual changes, other focal weakness numbness or tingling, incontinence, or seizure. The MRI of C-spine performed in the emergency department shows large acute left paracentral disc fragment at C4/C5 causing cord compression and focal cord edema/myelomalacia. There is also moderate bilateral foraminal stenosis at this level. 06/05: Major complaint today is burning in the fingers, particularly right hand. MRI is worrisome and decompression is advised. 06/06: Patient underwent anterior approach cervical decompression and reconstruction. Breathing comfortably, protects airway. No stridor or obstruction. 06/07: Breathing comfortably. Improving sensation upper extremities. Objective Vital Signs Date Time Temp Pulse Resp B/P (MAP) Pulse Ox O2 Delivery O2 Flow Rate FiO2 06/07/17 04:00 98.3 46 12 131/68 (89) 96 06/06/17 19:00 Room Air 97 06/05/17 13:45 3 Intake and Output 06/07/17 06/07/17 06/08/17 08:00 16:00 00:00 Intake Total 720 ml Output Total 1700 ml Balance -980 ml Result Diagram: 06/05/17 0525 06/06/17 0323 Imaging 1. Large and quite possibly acute left paracentral disc fragment at C4/C5 causing cord compression and focal cord edema/myelomalacia. There is also moderate bilateral foraminal stenosis at this level. 2. Moderate size and quite possibly acute central posterior disc fragment at C5/ C6 causing cord compression but no cord signal abnormality. There is also mild to moderate left foraminal stenosis at this level. 3. Small and probably nonacute left paracentral protrusion at C6/C7 with mild spinal stenosis and mild foraminal stenosis. No cord compression or cord signal abnormality at this level. 4. No fracture, subluxation or evidence of ligamentous injury of the cervical spine. Objective Remarks GENERAL: Awake, alert, oriented 3 no acute distress. SKIN: Warm and dry. Color is normal. HEAD: Atraumatic. Normocephalic. EYES: Pupils equal and round. No scleral icterus. No injection or drainage. ENT: No nasal bleeding or discharge. Mucous membranes pink and moist. NECK: Trachea midline. Cervical collar in place. CARDIOVASCULAR: Regular rate and rhythm. S1-S2 no murmurs rubs or gallops. NO JVD. RESPIRATORY: No accessory muscle use. Clear to auscultation. Breath sounds equal bilaterally. GASTROINTESTINAL: Abdomen soft, non-tender, nondistended. BS active. MUSCULOSKELETAL: Extremities without clubbing, cyanosis, or edema Well perfused. NEUROLOGICAL: Awake and alert. Normal speech. Moves 4 limbs to command. A/P Assessment and Plan Acute left paracentral disc fragment at C4/C5 - With cord compression and focal cord edema/myelomalacia - Stat neurosurgical consultation - Received IV steroids per neurosurgical request - MAP goal > 70 - currently at goal - Anterior cervical ORIF 06/05. Anxiety - Continue Lexapro History of asthma - DuoNeb's when necessary DVT GI prophylaxis - Teds SCDs - No chemical prophylaxis. - Pepcid Overall impression: Anterior decompression of the cervical cord performed, recovering nicely. Airway widely patent. Transfer when OK with NS. Travon Mora MD Jun 07, 2017 07:32
[2017-06-07] MEDS: GABAPENTIN 300 MG CAP PO SCH ×2 (07:38→20:48)
[2017-06-07] MEDS: FAMOTIDINE 20 MG/2 ML VIAL IV PUSH SCH ×2 (07:38→20:48)
[2017-06-07] MEDS: SODIUM CHLORIDE 0.9% FLUSH 10 ML FLUSH IV FLUSH SCH ×2 (07:38→20:48)
[2017-06-07] MEDS: DOCUSATE SODIUM 50 MG/SENNA 8.6 MG TAB PO SCH ×2 (07:39→20:48)
[2017-06-07] MEDS: ESCITALOPRAM OXALATE 10 MG TAB PO SCH (07:39)
--- NOTE | 2017-06-07 10:37 | HHI.NSPN ---
(Hola Moraes) History Chief Complaint: Spinal cord injury. Weakness in UEs pain in hands. (Hola Moraes) Interval History 42-year-old female presented to the emergency room after spinal cord injury from a fall. She relates that she tripped and fell on golf cart forward and struck her face and hyperextended her neck and subsequently she was on the floor unable to move her arms and legs with loss of sensation in her whole body. The paramedics were summoned and she was placed on a backboard with spinal precautions and brought to [facility] emergency room. She started noticing some improvement of his strength lower extremities more than the upper extremity complains of severe dysesthesias in the hands and forearm and grimaces with pain even when attempting to touch her hands. She is unable to make a fist. Workup included MRI scan cervical spine which reveals acute on chronic the disc herniation with the protrusions at C4-5 and C5-6 levels with moderate to spinal stenosis and intrinsic T2 weighted cord edema/injury with mild stenosis at C6-7 level. She relates a remote history of whiplash neck injury with chronic neck and back pain. She is also diagnosed with a left rotator cuff injury about a month ago and was seen by orthopedic surgery and referred to physical therapy. 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 She relates urinary urgency but no incontinence since the injury early this morning. She also relates some dyspnea but she says this is chronic from her smoking and COPD. She'll occasionally take inhalers. Recently she is also a some abdominal pain from reflux and has been taking Prilosec as needed. 06/06/17: Pt awake and alert. She is sitting up in a chair. Complains of burning pain in hands but this was also in her arms and is receding and remains in her hands. She complains they are very sensitive and request not to be touched. She has weakness in UEs more than LEs. 06/07/17: Pt awake and alert. She is sitting up in bed. She states the burning sensation in her hands is improving. Weakness in UEs improving and improved ability to make a fist bilaterally. (Hola Moraes) Review of Systems General: Negative for: fever, chills, insomnia Respiratory: Negative for: shortness of breath, cough, sputum Cardiovascular: Negative for: chest pain Gastrointestinal: Negative for: nausea, vomitting, diarrhea, constipation ( Hola Moraes) Exam Results Vital Signs Date Time Temp Pulse Resp B/P (MAP) Pulse Ox O2 Delivery O2 Flow Rate FiO2 06/07/17 08:00 48 06/07/17 08:00 97.9 22 129/81 (97) 98 06/07/17 07:00 Room Air 06/06/17 19:00 97 06/05/17 13:45 3 Intake and Output 06/07/17 06/07/17 3 08:00 16:00 00:00 Intake Total 720 ml Output Total 1700 ml Balance -980 ml (Hola Moraes) Physical Examination General: Pt awake and alert. Sitting up in bed in NAD. Eyes: Pupils equal. Sclera anicteric. Resp: CTA bilaterally. Heart: NSR no murmurs. Abd: Soft positive bs. Skin: No cyanosis or erythema. Incision healing well. New bandage placed. Muscle: Moves all 4 extremities. Deltoid, biceps, triceps 4-/5, She is able to make a fist more today still keeps 2nd finger extended secondary to pain. Strength in LEs 4/5, left iliopsoas 4-/5. [place] cervical collar intact. Neuro: Pt awake and alert. Sitting up in bed. Follows commands well. Speech clear and appropriate. Pupils equal. Paresthesias and dysesthesias in UEs with decreased sensation to light touch in forearms and hands, states it feels normal above the elbows bilaterally. (Hola Moraes) Lab, Micro, Other Results Last Impressions Cervical Spine X-Ray 06/05/17 0000 Signed Impressions: Service Date/Time: Monday, June 05, 2017 09:07 - CONCLUSION: Probe C4-C5. Clarke Cartagena MD FACR Chest X-Ray 06/04/17 0000 Signed Impressions: Service Date/Time: Sunday, June 04, 2017 08:20 - CONCLUSION: No acute disease. John Lomeli MD Cervical Spine MRI 06/04/17 0000 Signed Impressions: Service Date/Time: Sunday, June 04, 2017 03:50 - CONCLUSION: 1. Large and quite possibly acute left paracentral disc fragment at C4/C5 causing cord compression and focal cord edema/myelomalacia. There is also moderate bilateral foraminal stenosis at this level. 2. Moderate size and quite possibly acute central posterior disc fragment at C5/C6 causing cord compression but no cord signal abnormality. There is also mild to moderate left foraminal stenosis at this level. 3. Small and probably nonacute left paracentral protrusion at C6/ C7 with mild spinal stenosis and mild foraminal stenosis. No cord compression or cord signal abnormality at this level. 4. No fracture, subluxation or evidence of ligamentous injury of the cervical spine. John Trujillo MD (Hola Moraes) Medical Decision Making Impression and Plan A: 42 y/o FM s/p anterior cervical C4-5 and C5-6 microdiscectomy with interbody fusion; anterior C4-6 cervical plate placement; C4-5 and C5-6 interbody cage placement on 06/05/17. P: Continue with rehab efforts. Transfer to 6N Continue with Neurontin 300mg bid. Continue with cervical collar Pt will need inpatient rehab given her SCI and weakness. (Hola Moraes) Attending Statement The exam, history, and the medical decision-making described in the above note were completed with the assistance of the mid-level provider. I reviewed and agree with the findings presented. I attest that I had a [id number] encounter with the patient on the same day, and personally performed and documented my assessment and findings in the medical record. (Amol Slade MD) Hola Moraes Jun 07, 2017 10:37 Amol Slade MD Jun 07, 2017 14:13
[2017-06-07] MEDS ORDERED: ENOXAPARIN SODIUM 40 MG/0.4 ML SYRINGE SQ SCH (21:00)
[2017-06-08] VITALS: BP 141/81; PULSE 48; RESP 13; TEMP 97.9; O2SAT 99
[2017-06-08] MEDS: CHLORHEXIDINE GLUCONATE 2 % 1 PACK (2 CLOTHS) TOP SCH (00:54)
[2017-06-08 04:00] VITALS: BP 140/75; PULSE 62; RESP 16; TEMP 98.4; O2SAT 99
[2017-06-08] MEDS: ACETAMINOPHEN/HYDROcodone 325 MG/10 MG TAB PO PRN ×2 (05:18→15:39)
[2017-06-08 07:15] VITALS: PULSE 55
[2017-06-08 08:00] VITALS: BP 135/67; PULSE 65; RESP 18; TEMP 97.8; O2SAT 99
[2017-06-08] MEDS: SODIUM CHLORIDE 0.9% FLUSH 10 ML FLUSH IV FLUSH SCH (08:37)
[2017-06-08] MEDS: FAMOTIDINE 20 MG/2 ML VIAL IV PUSH SCH (08:37)
[2017-06-08] MEDS: DOCUSATE SODIUM 50 MG/SENNA 8.6 MG TAB PO SCH (08:38)
[2017-06-08] MEDS: ESCITALOPRAM OXALATE 10 MG TAB PO SCH (08:38)
[2017-06-08] MEDS: GABAPENTIN 300 MG CAP PO SCH (08:38)
--- NOTE | 2017-06-08 09:50 | HHI.NSPN ---
(Hola Moraes) History Chief Complaint: Spinal cord injury. Weakness in UEs pain in hands. (Hola Moraes) Interval History 42-year-old female presented to the emergency room after spinal cord injury from a fall. She relates that she tripped and fell on golf cart forward and struck her face and hyperextended her neck and subsequently she was on the floor unable to move her arms and legs with loss of sensation in her whole body. The paramedics were summoned and she was placed on a backboard with spinal precautions and brought to [facility] emergency room. She started noticing some improvement of his strength lower extremities more than the upper extremity complains of severe dysesthesias in the hands and forearm and grimaces with pain even when attempting to touch her hands. She is unable to make a fist. Workup included MRI scan cervical spine which reveals acute on chronic the disc herniation with the protrusions at C4-5 and C5-6 levels with moderate to spinal stenosis and intrinsic T2 weighted cord edema/injury with mild stenosis at C6-7 level. She relates a remote history of whiplash neck injury with chronic neck and back pain. She is also diagnosed with a left rotator cuff injury about a month ago and was seen by orthopedic surgery and referred to physical therapy. 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 She relates urinary urgency but no incontinence since the injury early this morning. She also relates some dyspnea but she says this is chronic from her smoking and COPD. She'll occasionally take inhalers. Recently she is also a some abdominal pain from reflux and has been taking Prilosec as needed. 06/06/17: Pt awake and alert. She is sitting up in a chair. Complains of burning pain in hands but this was also in her arms and is receding and remains in her hands. She complains they are very sensitive and request not to be touched. She has weakness in UEs more than LEs. 06/07/17: Pt awake and alert. She is sitting up in bed. She states the burning sensation in her hands is improving. Weakness in UEs improving and improved ability to make a fist bilaterally. 06/08/17: Pt awake and alert sitting up in bed. She complains of burning sensation in hands that is improving slowly as anticipated. She has weakness in UEs more than LEs which is consistent with her central spinal cord injury. (Hola Moraes) Review of Systems General: Negative for: fever, chills, insomnia Respiratory: Negative for: shortness of breath, cough, sputum Cardiovascular: Negative for: chest pain Gastrointestinal: Negative for: nausea, vomitting, diarrhea, constipation ( Hola Moraes) Exam Results Vital Signs Date Time Temp Pulse Resp B/P (MAP) Pulse Ox O2 Delivery O2 Flow Rate FiO2 06/08/17 07:15 55 06/08/17 07:00 99 Room Air 06/08/17 04:00 98.4 16 140/75 (96) 06/06/17 19:00 97 06/05/17 13:45 3 Intake and Output 06/08/17 06/08/17 06/09/17 08:00 16:00 00:00 Intake Total 480 ml Output Total 1551 ml Balance -1071 ml (Hola Moraes) Physical Examination General: Pt awake and alert. Sitting up in bed in NAD. Eyes: Pupils equal. Sclera anicteric. Resp: CTA bilaterally. Heart: NSR no murmurs. Abd: Soft positive bs. Skin: No cyanosis or erythema. Incision healing well. New bandage placed. Muscle: Moves all 4 extremities. Deltoid, biceps, triceps 4-/5, She is able to make a fist more today and close all fingers around an object. Strength in LEs 4/5, left iliopsoas 4-/5. [place] cervical collar intact. Neuro: Pt awake and alert. Sitting up in bed. Follows commands well. Speech clear and appropriate. Pupils equal. Paresthesias and dysesthesias in UEs with decreased sensation to light touch in forearms and hands, states it feels normal above the elbows bilaterally. (Hola Moraes) Lab, Micro, Other Results Last Impressions Cervical Spine X-Ray 06/05/17 0000 Signed Impressions: Service Date/Time: Monday, June 05, 2017 09:07 - CONCLUSION: Probe C4-C5. Clarke Cartagena MD FACR Chest X-Ray 06/04/17 0000 Signed Impressions: Service Date/Time: Sunday, June 04, 2017 08:20 - CONCLUSION: No acute disease. John Lomeli MD Cervical Spine MRI 06/04/17 0000 Signed Impressions: Service Date/Time: Sunday, June 04, 2017 03:50 - CONCLUSION: 1. Large and quite possibly acute left paracentral disc fragment at C4/C5 causing cord compression and focal cord edema/myelomalacia. There is also moderate bilateral foraminal stenosis at this level. 2. Moderate size and quite possibly acute central posterior disc fragment at C5/C6 causing cord compression but no cord signal abnormality. There is also mild to moderate left foraminal stenosis at this level. 3. Small and probably nonacute left paracentral protrusion at C6/ C7 with mild spinal stenosis and mild foraminal stenosis. No cord compression or cord signal abnormality at this level. 4. No fracture, subluxation or evidence of ligamentous injury of the cervical spine. John Trujillo MD (Hola Moraes) Medical Decision Making Impression and Plan A: 42 y/o FM s/p anterior cervical C4-5 and C5-6 microdiscectomy with interbody fusion; anterior C4-6 cervical plate placement; C4-5 and C5-6 interbody cage placement on 06/05/17. P: Continue with rehab efforts. Transfer to 6N Continue with Neurontin 300mg bid. Continue with cervical collar Pt will need inpatient rehab given her SCI and weakness in the UEs and LEs. I strongly feel the pt will get most benefit from her injury in an inpatient rehab where she will get 3 hours of therapy daily consisting of PT and OT. She has made improvements s/p cervical decompression and fusion and at this point the greatest benefit will be gained over the next few weeks and again the more therapy she has the better outcome I think she will have in a young patient. (Hola Moraes) Attending Statement The exam, history, and the medical decision-making described in the above note were completed with the assistance of the mid-level provider. I reviewed and agree with the findings presented. I attest that I had a [id number] encounter with the patient on the same day, and personally performed and documented my assessment and findings in the medical record. She continues to improve clinically and is agreeable to inpatient rehabilitation placement. Accordingly we'll transfer to rehabilitation facility whenever she is accepted. (Amol Slade MD) Hola Moraes Jun 08, 2017 09:50 Amol Slade MD Jun 08, 2017 15:51
[2017-06-08 12:00] VITALS: BP 147/71; PULSE 71; RESP 18; TEMP 97.9; O2SAT 99
[2017-06-08 16:00] VITALS: BP 141/71; PULSE 55; RESP 18; TEMP 97.9; O2SAT 99
--- NOTE | 2017-06-08 16:29 | HHI.DS ---
Discharge Summary Admission Date Jun 04, 2017 at 05:04 Discharge Date: Jun 08, 2017 Admitting Diagnosis Cervical Cord Injury (1) Impaired mobility and activities of daily living Diagnosis: Principal ICD Codes: Z74.09 - Other reduced mobility Status: Acute (2) Status post cervical discectomy Diagnosis: Principal ICD Codes: Z98.890 - Other specified postprocedural states (3) GERD (gastroesophageal reflux disease) Diagnosis: Secondary ICD Codes: K21.9 - Gastro-esophageal reflux disease without esophagitis Status: Acute (4) COPD with asthma Diagnosis: Secondary ICD Codes: J44.9 - Chronic obstructive pulmonary disease, unspecified Status: Chronic (5) Anxiety and depression Diagnosis: Secondary ICD Codes: F41.8 - Other specified anxiety disorders Status: Chronic (6) Tobacco use Diagnosis: Secondary ICD Codes: Z72.0 - Tobacco use Status: Chronic Consultants Dr. Amol Slade, Neurosurgeon Brief History 42-year-old female status post trip and fall. The patient hit her face on the edge of a golf cart causing a rapid extension mechanism injury of her neck with immediate subsequent numbness weakness in her lower extremities and intense paresthesias in bilateral upper extremities. Patient does have persistent bilateral upper extremity paresthesias radiating from elbow down to hands. She denies headache, neck pain, visual changes, other focal weakness numbness or tingling, incontinence, or seizure. The MRI of C-spine performed in the emergency department shows large acute left paracentral disc fragment at C4/C5 causing cord compression and focal cord edema/myelomalacia. There is also moderate bilateral foraminal stenosis at this level. CBC/BMP: 06/05/17 0525 06/06/17 0323 Significant Findings Laboratory Tests Test 06/06/17 03:23 Random Glucose 138 MG/DL (74-106) Estimat Glomerular Filtration Rate 78 ML/MIN (>89) Imaging Last Impressions Cervical Spine X-Ray 06/05/17 0000 Signed Impressions: Service Date/Time: Monday, June 05, 2017 09:07 - CONCLUSION: Probe C4-C5. Clarke Cartagena MD FACR Chest X-Ray 06/04/17 0000 Signed Impressions: Service Date/Time: Sunday, June 04, 2017 08:20 - CONCLUSION: No acute disease. John Lomeli MD Cervical Spine MRI 06/04/17 0000 Signed Impressions: Service Date/Time: Sunday, June 04, 2017 03:50 - CONCLUSION: 1. Large and quite possibly acute left paracentral disc fragment at C4/C5 causing cord compression and focal cord edema/myelomalacia. There is also moderate bilateral foraminal stenosis at this level. 2. Moderate size and quite possibly acute central posterior disc fragment at C5/C6 causing cord compression but no cord signal abnormality. There is also mild to moderate left foraminal stenosis at this level. 3. Small and probably nonacute left paracentral protrusion at C6/ C7 with mild spinal stenosis and mild foraminal stenosis. No cord compression or cord signal abnormality at this level. 4. No fracture, subluxation or evidence of ligamentous injury of the cervical spine. John Trujillo MD PE at Discharge GENERAL: This is a well-nourished, well-developed patient, in no apparent distress. CARDIOVASCULAR: Regular rate and rhythm without murmurs, gallops, or rubs. RESPIRATORY: Clear to auscultation. Breath sounds equal bilaterally. No wheezes , rales, or rhonchi. GASTROINTESTINAL: Abdomen soft, non-tender, nondistended. Normal active bowel sounds MUSCULOSKELETAL: Extremities without clubbing, cyanosis, or edema. NEURO: UEs remain weak, LE 4/5 x b/l Hospital Course 42-year-old female presented to the emergency room after spinal cord injury from a fall. She relates that she tripped and fell on golf cart forward and struck her face and hyperextended her neck and subsequently she was on the floor unable to move her arms and legs with loss of sensation in her whole body. The paramedics were summoned and she was placed on a backboard with spinal precautions and brought to [facility] emergency room. She started noticing some improvement of his strength lower extremities more than the upper extremity complains of severe dysesthesias in the hands and forearm and grimaces with pain even when attempting to touch her hands. She is unable to make a fist. Workup included MRI scan cervical spine which reveals acute on chronic the disc herniation with the protrusions at C4-5 and C5-6 levels with moderate to spinal stenosis and intrinsic T2 weighted cord edema/injury with mild stenosis at C6-7 level. She relates a remote history of whiplash neck injury with chronic neck and back pain. She is also diagnosed with a left rotator cuff injury about a month ago and was seen by orthopedic surgery and referred to physical therapy. 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 She relates urinary urgency but no incontinence since the injury early this morning. She also relates some dyspnea but she says this is chronic from her smoking and COPD. She'll occasionally take inhalers. Recently she is also a some abdominal pain from reflux and has been taking Prilosec as needed. 06/06/17: Pt awake and alert. She is sitting up in a chair. Complains of burning pain in hands but this was also in her arms and is receding and remains in her hands. She complains they are very sensitive and request not to be touched. She has weakness in UEs more than LEs. 06/07/17: Pt awake and alert. She is sitting up in bed. She states the burning sensation in her hands is improving. Weakness in UEs improving and improved ability to make a fist bilaterally. 06/08/17: Pt awake and alert sitting up in bed. She complains of burning sensation in hands that is improving slowly as anticipated. She has weakness in UEs more than LEs which is consistent with her central spinal cord injury. Pt to be discharged in inpatient Rehabilitiation, [facility]. See discharge orders. Pt Condition on Discharge: Stable Discharge Disposition: Rehab Inpatient Discharge Instructions DIET: Follow Instructions for: As Tolerated, No Restrictions Activities you can perform: Weight Bearing as Doyle Activities to Avoid: Strenuous Activity Follow up Referrals: Neurosurgery - 2 Weeks with Amol Slade MD PCP Follow-up - [address] Jourdan Castro f/u with PCP, Dr. Jourdan Castro, one week after discharge from [facility] New Medications: Famotidine (Pepcid) 20 Mg Tab 20 MG PO BID for gi prophylaxis, #60 TAB 0 Refills Enoxaparin Inj (Lovenox Inj) 40 Mg/0.4 Ml Syr 40 MG SQ Q24H for dvt prophylaxis for 7 Days, INJECTION Gabapentin (Neurontin) 300 Mg Cap 300 MG PO BID for neuropathic pain for 30 Days, #60 CAP Hydrocodone/Acetaminophen (Hydrocodone-Acetamin 10-325 mg) 10 Mg-325 Mg Tablet 1 TAB PO Q4H PRN for pain 1-10 for 7 Days, MG 0 Refills Temazepam (Restoril) 15 Mg Cap 15 MG PO HS PRN for INSOMNIA for 7 Days, CAP Continued Medications: Escitalopram (Lexapro) 10 Mg Tab 10 MG PO DAILY, #30 TAB 0 Refills Matthew Guardado DO Jun 08, 2017 16:29
[2017-06-08] MEDS ORDERED: ENOX40P SQ (16:36)
[2017-06-08] MEDS ORDERED: HYDR-3583 PO (16:36)
[2017-06-08] MEDS ORDERED: NEUR300C PO (16:36)
[2017-06-08] MEDS ORDERED: FAMO1TAB37 PO (16:36)
[2017-06-08] MEDS ORDERED: REST15CA PO (16:36)
--- NOTE | 2017-06-08 16:48 | HHI.DCPOC ---
Discharge Care Plan Diagnosis: (1) Cervical spinal cord injury Goals to Promote Your Health * To prevent worsening of your condition and complications * To maintain your health at the optimal level Directions to Meet Your Goals Take your medications as prescribed Follow your dietary instruction Follow activity as directed Keep your appointments as scheduled Take your immunizations and boosters as scheduled If your symptoms worsen call your PCP, if no PCP go to Urgent Care Center or Emergency Room Smoking is Dangerous to Your Health. Avoid second hand smoke Call the 24-hour hour crisis hotline for domestic abuse at Matthew Guardado DO Jun 08, 2017 16:47
== END 2017-06-08 17:36 | DRG 29 ==
LOC: NEPE 01:49 → NEDA 05:04 → N03A 09:22
PROVIDERS: ADMIT Internal Medicine Critical Care Medicine; ATTEND Internal Medicine Critical Care Medicine
PROC: 0RG20A0 Fusion of 2 or more Cervical Vertebral Joints with Interbody Fusion Device, Anterior Approach, Anterior Column, Open Approach (ICD-10-PCS; 2017-06-05)
PROC: 0RG2070 Fusion of 2 or more Cervical Vertebral Joints with Autologous Tissue Substitute, Anterior Approach, Anterior Column, Open Approach (ICD-10-PCS; 2017-06-05)
PROC: 4A1004G Monitoring of Central Nervous Electrical Activity, Intraoperative, Open Approach (ICD-10-PCS; 2017-06-05)
PROC: 0RT30ZZ Resection of Cervical Vertebral Disc, Open Approach (ICD-10-PCS; principal; 2017-06-05 08:39)
DX: S14.129A Central cord syndrome at unspecified level of cervical spinal cord, initial encounter (principal); G95.89 Other specified diseases of spinal cord; M48.02 Spinal stenosis, cervical region; F32.9 Major depressive disorder, single episode, unspecified; M50.221 Other cervical disc displacement at C4-C5 level; J44.9 Chronic obstructive pulmonary disease, unspecified; F17.200 Nicotine dependence, unspecified, uncomplicated; G89.29 Other chronic pain; W01.198A Fall on same level from slipping, tripping and stumbling with subsequent striking against other object, initial encounter; Y93.89 Activity, other specified; Y92.9 Unspecified place or not applicable; K21.9 Gastro-esophageal reflux disease without esophagitis; F41.9 Anxiety disorder, unspecified; S80.211A Abrasion, right knee, initial encounter; R20.2 Paresthesia of skin; M25.78 Osteophyte, vertebrae
CPT/HCPCS: 71045; 72020; 72040; 72141; 76000; 80048; 80053; 83735; 84100; 85025; 85610; 85730; 86850; 86900; 86901; 87641; 93005; 94150; C1713; J0131; J1100; J1170; J1650; J2250; J2270; J2405; J3010; J3370; J7030; J7050; J7120; L0150; L0172